=== PATIENT | male | born 1990 | race African-American/Black ===

== ENCOUNTER 2024-03-15 08:14 | Emergency (ER) | payer OTHER ==
[~2024-03-15] VITALS: Ht 185.4 cm; Wt 107.7 kg
[2024-03-15 08:15] VITALS: BP 115/73; TEMP 96.5; O2SAT 100
[2024-03-15] MEDS ORDERED: NOXI1TAB PO (08:27)
[2024-03-15] MEDS ORDERED: THERTAB52 PO (08:27)
[2024-03-15] MEDS ORDERED: OMEG10002 PO (08:27)
[2024-03-15] MEDS: ACETAMINOPHEN TAB 650MG DOSE (2X325MG) PO ONE (09:32)
[2024-03-15] MEDS: KETOROLAC 30 MG/ML 1ML VIAL IM ONE (09:32)
[2024-03-15] MEDS ORDERED: METH-1165 PO (09:33)
[2024-03-15] MEDS ORDERED: IBUP80TA PO (09:33)
== END 2024-03-15 09:56 | disposition home or self-care (01) ==
LOC: M ED 08:14
DX: S39.012A Strain of muscle, fascia and tendon of lower back, initial encounter (principal); Y92.9 Unspecified place or not applicable; Y93.9 Activity, unspecified; Y99.9 Unspecified external cause status; Z79.1 Long term (current) use of non-steroidal anti-inflammatories (NSAID); Z79.810 Long term (current) use of selective estrogen receptor modulators (SERMs); Z79.899 Other long term (current) drug therapy
CPT/HCPCS: 96372; 99282; J1885